=== PATIENT | female | born 1990 | race African-American/Black ===

== ENCOUNTER 2017-02-23 08:23 | Emergency (ER) | payer SELFPAY ==
[~2017-02-23] VITALS: Ht 177.8 cm; Wt 59.0 kg
--- NOTE | 2017-02-23 08:54 | PHYS DOC ---
Adult General Chief Complaint Chief Complaint: CHEST WALL PAIN HPI HPI Patient is a 26 year old female with a history of GERD presents to the ED complaining of chest discomfort that started yesterday during christian. Describes the pain as sharp. Rates the pain as 8/10 at its worst. Substernal. No radiation. States she stopped taking her GERD medications a few months ago and didnt have a problem until yesterday. Associated symptoms include burping. Denies shortness of breath, dizziness, weakness, n/v, abdominal pain, fever or cough/flu like symptoms. Review of Systems Review of Systems Constitutional: Denies fever or chills [] Eyes: Denies change in visual acuity, redness, or eye pain [] HENT: Denies nasal congestion or sore throat [] Respiratory: Denies cough or shortness of breath [] Cardiovascular: No additional information not addressed in HPI [] GI: Denies abdominal pain, nausea, vomiting, bloody stools or diarrhea [] : Denies dysuria or hematuria [] Musculoskeletal: Denies back pain or joint pain [] Integument: Denies rash or skin lesions [] Neurologic: Denies headache, focal weakness or sensory changes [] Endocrine: Denies polyuria or polydipsia [] All other systems were reviewed and found to be within normal limits, except as documented in this note. Current Medications Current Medications Current Medications Medications (Trade) Dose Ordered Sig/Trini Start Time Stop Time Status Last Admin Dose Admin Famotidine (Pepcid Vial) 20 mg 1X ONCE 02/23/17 09:00 02/23/17 09:02 DC 02/23/17 09:28 20 MG Allergies Allergies Allergies Coded Allergies Type Severity Reaction Last Updated Verified No Known Drug Allergies 02/23/17 No Physical Exam Physical Exam Constitutional: Well developed, well nourished, no acute distress, non-toxic appearance. [] HENT: Normocephalic, atraumatic, bilateral external ears normal, oropharynx moist, no oral exudates, nose normal. [] Eyes: PERRLA, EOMI, conjunctiva normal, no discharge. [] Neck: Normal range of motion, no tenderness, supple, no stridor. [] Cardiovascular:Heart rate regular rhythm, no murmur [] Lungs & Thorax: Bilateral breath sounds clear to auscultation [] Abdomen: Bowel sounds normal, soft, no tenderness, no masses, no pulsatile masses. [] Skin: Warm, dry, no erythema, no rash. [] Back: No tenderness, no CVA tenderness. [] Extremities: No tenderness, no cyanosis, no clubbing, ROM intact, no edema. [] Neurologic: Alert and oriented X 3, normal motor function, normal sensory function, no focal deficits noted. [] Psychologic: Affect normal, judgement normal, mood normal. [] Current Patient Data Vital Signs Vital Signs Date Time Temp Pulse Resp B/P (MAP) Pulse Ox O2 Delivery O2 Flow Rate FiO2 02/23/17 09:37 92 19 132/78 (96) 100 Room Air 02/23/17 09:01 98.1 98.1 Lab Values Laboratory Tests Test 02/23/17 09:00 02/23/17 09:19 02/23/17 09:20 Urine Collection Type Unknown Urine Color Yellow Urine Clarity Clear Urine pH 7.5 Urine Specific [place] 1.015 Urine Protein Negative mg/dL (NEG-TRACE) Urine Glucose (UA) Negative mg/dL (NEG) Urine Ketones (Stick) Negative mg/dL (NEG) Urine Blood Negative (NEG) Urine Nitrite Negative (NEG) Urine Bilirubin Negative (NEG) Urine Urobilinogen Dipstick 0.2 mg/dL (0.2 mg/dL) Urine Leukocyte Esterase Negative (NEG) Urine RBC 0 /HPF (0-2) Urine WBC Occ /HPF (0-4) Urine Squamous Epithelial Cells Mod /LPF Urine Bacteria Few /HPF (0-FEW) Urine Yeast Present /HPF POC Urine HCG, Qualitative Hcg negative (Negative) White Blood Count 4.5 x10^3/uL (4.0-11.0) Red Blood Count 4.49 x10^6/uL (3.50-5.40) Hemoglobin 13.1 g/dL (12.0-15.5) Hematocrit 40.4 % (36.0-47.0) Mean Corpuscular Volume 90 fL (79-100) Mean Corpuscular Hemoglobin 29 pg (25-35) Mean Corpuscular Hemoglobin Concent 32 g/dL (31-37) Red Cell Distribution Width 13.8 % (11.5-14.5) Platelet Count 168 x10^3/uL (140-400) Sodium Level 139 mmol/L (136-145) Potassium Level 3.8 mmol/L (3.5-5.1) Chloride Level 105 mmol/L (98-107) Carbon Dioxide Level 25 mmol/L (21-32) Anion Gap 9 (6-14) Blood Urea Nitrogen 11 mg/dL (7-20) Creatinine 0.7 mg/dL (0.6-1.0) Estimated GFR (Cockcroft-Gault) 122.4 BUN/Creatinine Ratio 16 (6-20) Glucose Level 84 mg/dL (70-99) Calcium Level 9.6 mg/dL (8.5-10.1) Total Bilirubin 0.8 mg/dL (0.2-1.0) Aspartate Amino Transferase (AST) 22 U/L (15-37) Alanine Aminotransferase (ALT) 22 U/L (14-59) Alkaline Phosphatase 77 U/L (46-116) Troponin I Quantitative < 0.017 ng/mL (0.000-0.055) Total Protein 8.1 g/dL (6.4-8.2) Albumin 3.8 g/dL (3.4-5.0) Albumin/Globulin Ratio 0.9 (1.0-1.7) L Laboratory Tests 02/23/17 09:20 Laboratory Tests 02/23/17 09:20 EKG EKG []Normal sinus rhythm at 78 bpm. No STEMI or ACUTE changes. Radiology/Procedures Radiology/Procedures PROCEDURE: CHEST PA & LATERAL Indication: Chest pain for one week. Time of exam 0956 hours. No prior studies are available for comparison. The heart size is normal. The lungs are clear. No infiltrates are detected. No effusion or pneumothorax is seen. Impression: No acute cardiopulmonary process is detected.[] Course & Med Decision Making Course & Med Decision Making Pertinent Labs and Imaging studies reviewed. (See chart for details) []Discussed labs and imaging with patient. Patient's discomfort resolved with medicine in ED. Abdomen is soft nontender nondistended. No peritoneal signs. Discussed follow-up with PCP outpatient later this week. Will discharge with prednisone. Discussed reasons to return to the ED. Patient understands and agrees with plan. Dragon Disclaimer Dragon Disclaimer This electronic medical record was generated, in whole or in part, using a voice recognition dictation system. Departure Departure Impression: Primary Impression: GERD (gastroesophageal reflux disease) Disposition: HOME, SELF-CARE Condition: IMPROVED Referrals: NO PCP (PCP) CHULA GOLDSTEIN MD, SCOTT S MD Patient Instructions: Gastroesophageal Reflux Disease, Adult Scripts Omeprazole Magnesium (PRILOSEC OTC) 20 Mg Tablet.dr 1 TAB PO DAILY, #30 TAB 3 Refills Prov: VERA MARMOLEJO 02/23/17 VERA MARMOLEJO Feb 23, 2017 08:54
[2017-02-23] MEDS ORDERED: FAMOTIDINE 20 MG/2 ML VIAL IVP ONE (09:00)
--- NOTE | 2017-02-23 09:03 | EKG ---
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
[2017-02-23 09:37] VITALS: BP 132/78
[2017-02-23 09:37] LABS: BILIRUBIN,URINE NEGATIVE (NEG); GLUCOSE,URINE NEGATIVE (NEG); NITRITE,URINE NEGATIVE (NEG); PH,URINE 7.5; PROTEIN,URINE NEGATIVE (NEG-TRACE); UROBILINOGEN,URINE 0.2 mg/dL (0.2 mg/dL)
[2017-02-23 09:40] LABS: HEMATOCRIT 40.4 % (36.0-47.0); HEMOGLOBIN 13.1 g/dL (12.0-15.5); RED BLOOD COUNT 4.49 x10^6/uL (3.50-5.40); RED CELL DISTRIBUTION WIDTH 13.8 % (11.5-14.5); WHITE BLOOD COUNT 4.5 x10^3/uL (4.0-11.0)
[2017-02-23 09:45] LABS: SQUAMOUS EPITHELIAL CELL,UR MOD /LPF
[2017-02-23 09:46] LABS: BACTERIA,URINE FEW /HPF (0-FEW); RBC,URINE 0 /HPF (0-2); WBC,URINE OCC /HPF (0-4); YEAST,URINE PRESENT /HPF
[2017-02-23 09:48] LABS: CALCIUM 9.6 mg/dL (8.5-10.1); CREATININE 0.7 mg/dL (0.6-1.0); GFR 122.4; POTASSIUM 3.8 mmol/L (3.5-5.1)
[2017-02-23 09:54] LABS: ALBUMIN 3.8 g/dL (3.4-5.0); ALBUMIN/GLOBULIN RATIO 0.9 (1.0-1.7); TOTAL BILIRUBIN 0.8 mg/dL (0.2-1.0); TOTAL PROTEIN 8.1 g/dL (6.4-8.2)
--- NOTE | 2017-02-23 10:07 | RAD ---
Indication: Chest pain for one week. Time of exam 0956 hours. No prior studies are available for comparison. The heart size is normal. The lungs are clear. No infiltrates are detected. No effusion or pneumothorax is seen. Impression: No acute cardiopulmonary process is detected.
[2017-02-23] MEDS ORDERED: OMEP20TA63 PO (10:15)
== END 2017-02-23 10:28 | disposition home or self-care (01) ==
LOC: ER 08:23
DX: K21.9 Gastro-esophageal reflux disease without esophagitis (principal); R07.2 Precordial pain
CPT/HCPCS: 36415; 71020; 80053; 81001; 81025; 84484; 85027; 93005; 96374; 99285; S0028

== ENCOUNTER 2017-12-20 10:14 | Emergency (ER) | payer SELFPAY ==
[~2017-12-20] VITALS: Ht 177.8 cm; Wt 59.0 kg
[~2017-12-20 10:14] MED LIST: OMEP20TA63 PO
[2017-12-20 10:26] VITALS: BP 131/81
[2017-12-20] MEDS ORDERED: KETOROLAC 60 MG/2 ML INJ. IM ONE (11:15)
[2017-12-20] MEDS ORDERED: CYCLOBENZAPRINE 10 MG TABLET. PO ONE (11:15)
[2017-12-20] MEDS ORDERED: HYDROcodone/APAP 5/325MG 1 TAB TABLET PO ONE (11:15)
[2017-12-20] MEDS ORDERED: NAPR-683 PO (11:42)
[2017-12-20] MEDS ORDERED: CYCL10TA2 PO (11:42)
[2017-12-20] MEDS ORDERED: METH4TAB2 PO (11:42)
[2017-12-20] MEDS ORDERED: TRAM-48 PO (11:42)
--- NOTE | 2017-12-20 11:43 | PHYS DOC ---
Past Medical History Past Medical History: GERD, Other Additional Past Medical Histor: SCOLIOSIS, SCIATICA Past Surgical History: No Surgical History Alcohol Use: None Drug Use: None Adult General Chief Complaint Chief Complaint: BACK PAIN - NO INJURY [facility] HPI Patient is a 27 year old female who presents with complaining of low back pain since yesterday. Patient states she woke up yesterday with left lower back pain with radiation to the left gluteal area and posterior thigh as a constant and stabbing pain that getting worse with movement. Patient denies injury, focal neuro deficit, urine and bowel incontinence, urinary symptoms, , abdominal pain, nausea and vomiting. Patient rated her pain 10 over 10 and states she had episodes of the same pain intermittently for the last 6 years. Review of Systems Review of Systems Constitutional: Denies fever or chills [] Eyes: Denies change in visual acuity, redness, or eye pain [] HENT: Denies nasal congestion or sore throat [] Respiratory: Denies cough or shortness of breath [] Cardiovascular: No additional information not addressed in HPI [] GI: Denies abdominal pain, nausea, vomiting, bloody stools or diarrhea [] : Denies dysuria or hematuria [] Musculoskeletal: Reports back pain Integument: Denies rash or skin lesions [] Neurologic: Denies headache, focal weakness or sensory changes [] Endocrine: Denies polyuria or polydipsia [] All other systems were reviewed and found to be within normal limits, except as documented in this note. Current Medications Current Medications Current Medications Medications (Trade) Dose Ordered Sig/[facility] Start Time Stop Time Status Last Admin Dose Admin Acetaminophen/ Hydrocodone Bitart (Lortab 5/325) 1 tab 1X ONCE 12/20/17 11:15 12/20/17 11:16 DC 12/20/17 11:18 1 TAB Cyclobenzaprine HCl (Flexeril) 10 mg 1X ONCE 12/20/17 11:15 12/20/17 11:16 DC 12/20/17 11:18 10 MG Ketorolac Tromethamine (Toradol Im) 60 mg 1X ONCE 12/20/17 11:15 12/20/17 11:16 DC 12/20/17 11:20 60 MG Allergies Allergies Allergies Coded Allergies Type Severity Reaction Last Updated Verified No Known Drug Allergies 02/23/17 No Physical Exam Physical Exam Constitutional: Well developed, well nourished, moderate distress, non-toxic appearance. [] HENT: Normocephalic, atraumatic Eyes: PERRLA, EOMI, conjunctiva normal, no discharge. [] Neck: Normal range of motion, no tenderness, supple, no stridor. [] Cardiovascular:Heart rate regular rhythm, no murmur [] Lungs & Thorax: Bilateral breath sounds clear to auscultation [] Abdomen: Bowel sounds normal, soft, no tenderness, no masses, no pulsatile masses. [] Skin: Warm, dry, no erythema, no rash. [] Back: No midline tenderness, left paraspinal muscle spasm and limited range of motion, no CVA tenderness. [] Extremities: No tenderness, no cyanosis, no clubbing, ROM intact, no edema. [] Neurologic: Alert and oriented X 3, normal motor function, normal sensory function, no focal deficits noted. [] Psychologic: Affect normal, judgement normal, mood normal. [] Current Patient Data Vital Signs Vital Signs Date Time Temp Pulse Resp B/P (MAP) Pulse Ox O2 Delivery O2 Flow Rate FiO2 12/20/17 11:18 13 12/20/17 10:26 98.8 103 131/81 (98) 95 Room Air 98.8 EKG EKG [] Radiology/Procedures Radiology/Procedures [] Course & Med Decision Making Course & Med Decision Making discharge: I've spoken with the patient and/or caregivers. I've explained the patient's condition, diagnosis and treatment plan based on information available to me at this time. I've answered the patient's and/or caregivers questions and addressed any concerns. The patient and/or caregivers have a good understanding the patient's diagnosis, condition and treatment plan as can be expected at this point. Vital signs have been stabilized. The patient's condition is stable for discharge from the emergency department. The patient will pursue further outpatient evaluation with her primary care provider or other designated consulting physician as outlined in the discharge instructions. Patient and/or caregivers are agreeable to this plan of care and follow-up instructions have been explained in detail. The patient and/or caregivers have received these instructions in written format and expressed understanding of these discharge instructions. The patient and her caregivers are aware that if any significant change in condition or worsening of symptoms should prompt him to immediately return to this of the closest emergency department. If an emergent department is not readily available I would encourage him to call 911. Jadyn Disclaimer Jadyn Disclaimer This electronic medical record was generated, in whole or in part, using a voice recognition dictation system. Departure Departure Impression: Primary Impression: Sciatica Disposition: 01 HOME, SELF-CARE (at 11:30) Condition: IMPROVED Referrals: NO PCP (PCP) Patient Instructions: Sciatica Additional Instructions: Drink plenty of liquids Follow-up with your primary care physician in 3-5 days Return to ER if not getting better Apply ice on your back Scripts Naproxen (NAPROSYN) 500 Mg Tablet 1 TAB PO BID, #20 TAB Prov: GARCIA DUKES MD 12/20/17 Tramadol Hcl (ULTRAM) 50 Mg Tablet 50 MG PO Q6HRS PRN for PAIN, #20 TAB 0 Refills Prov: GARCIA DUKES MD 12/20/17 Cyclobenzaprine Hcl (CYCLOBENZAPRINE HCL) 10 Mg Tablet 1 TAB PO TID, #30 TAB Prov: GARCIA DUKES MD 12/20/17 Methylprednisolone (MEDROL) 4 Mg Tab.ds.pk 1 PKG PO UD, #1 PKG Prov: GARCIA DUKES MD 12/20/17 GARCIA DUKES MD Dec 20, 2017 11:43
== END 2017-12-20 11:52 | disposition home or self-care (01) ==
LOC: ER 10:14
DX: M54.42 Lumbago with sciatica, left side (principal); K21.9 Gastro-esophageal reflux disease without esophagitis
CPT/HCPCS: 96372; 99283; J1885

== ENCOUNTER 2018-06-12 15:40 | Emergency (ER) | payer SELFPAY ==
[~2018-06-12] VITALS: Ht 160 cm; Wt 56.7 kg
[~2018-06-12 15:40] MED LIST changes: +CYCL10TA2 PO; +METH4TAB2 PO; +NAPR-683 PO; +TRAM-48 PO
[2018-06-12] MEDS ORDERED: IV NORMAL SALINE 1000ML BAG 1,000 ML IV SCH (15:58)
[2018-06-12] MEDS ORDERED: FAMOTIDINE 20 MG/2 ML VIAL IVP ONE (16:00)
[2018-06-12 16:28] LABS: BILIRUBIN,URINE NEGATIVE (NEG); CLARITY,URINE CLEAR; COLOR,URINE YELLOW; NITRITE,URINE NEGATIVE (NEG); PH,URINE 7.5; PROTEIN,URINE NEGATIVE (NEG-TRACE)
[2018-06-12 16:34] LABS: AMPHETAMINE/METHAMPHETAMINE NEG (NEG); BARBITURATES NEG (NEG); BENZODIAZEPINES NEG (NEG); CANNABINOIDS NEG (NEG); COCAINE NEG (NEG); METHADONE NEG (NEG); OPIATES NEG (NEG); PHENCYCLIDINE NEG (NEG)
[2018-06-12 16:34] LABS: BASO % 0 % (0-3); EOS # 0.1 x10^3/uL (0.0-0.7); EOS % 2 % (0-3); HEMATOCRIT 41.9 % (36.0-47.0); HEMOGLOBIN 13.6 g/dL (12.0-15.5); LYMPH # 2.3 x10^3/uL (1.0-4.8); LYMPH % 29 % (24-48); MEAN CORPUSCULAR HEMOGLOBIN 29 pg (25-35); MEAN CORPUSCULAR HGB CONC 32 g/dL (31-37); MEAN CORPUSCULAR VOLUME 90 fL (79-100); MONO # 0.5 x10^3/uL (0.0-1.1); MONO % 7 % (0-9); NEUT # 4.9 x10^3uL (1.8-7.7); NEUT % 62 % (31-73); PLATELET COUNT 192 x10^3/uL (140-400); RED BLOOD COUNT 4.66 x10^6/uL (3.50-5.40); RED CELL DISTRIBUTION WIDTH 14.2 % (11.5-14.5); WHITE BLOOD COUNT 7.9 x10^3/uL (4.0-11.0)
--- NOTE | 2018-06-12 16:34 | PHYS DOC ---
Past Medical History Past Medical History: GERD, Other Additional Past Medical Histor: SCOLIOSIS, SCIATICA Past Surgical History: No Surgical History Alcohol Use: None Drug Use: None Adult General Chief Complaint Chief Complaint: CHEST PAIN HPI HPI Patient is a 27 year old female who presents with 3 days of mid chest pain that is sharp and comes and goes and tends to come when she is laying flat at night and does get better when she sits up. Patient has a history of GERD. Patient states she begins having some trouble breathing when she lays down. Patient states she has some nausea that comes and goes but she has not been vomiting. Patient denies coughing or recent illness, fever, abdominal pain, diarrhea, headache, dizziness, visual changes, weakness or numbness and tingling. Review of Systems Review of Systems Constitutional: Denies fever or chills [] Eyes: Denies change in visual acuity, redness, or eye pain [] HENT: Denies nasal congestion or sore throat [] Respiratory: Denies cough. +shortness of breath [] Cardiovascular: mid chest pain GI: Denies abdominal pain, + nausea, denies vomiting, bloody stools or diarrhea [] : Denies dysuria or hematuria [] Musculoskeletal: Denies back pain or joint pain [] Integument: Denies rash or skin lesions [] Neurologic: Denies headache, focal weakness or sensory changes [] All other systems were reviewed and found to be within normal limits, except as documented in this note. Current Medications Current Medications Current Medications Medications (Trade) Dose Ordered Sig/Trini Start Time Stop Time Status Last Admin Dose Admin Famotidine (Pepcid Vial) 20 mg 1X ONCE 06/12/18 16:00 06/12/18 16:02 DC 06/12/18 16:19 20 MG Sodium Chloride 1,000 ml @ 1,000 mls/hr Q1H 06/12/18 15:58 06/12/18 16:57 DC 06/12/18 16:20 1,000 MLS/HR Allergies Allergies Allergies Coded Allergies Type Severity Reaction Last Updated Verified No Known Drug Allergies 02/23/17 No Physical Exam Physical Exam Constitutional: Well developed, well nourished, no acute distress, non-toxic appearance. [] HENT: Normocephalic, atraumatic, bilateral external ears normal, oropharynx moist, no oral exudates, nose normal. [] Eyes: PERRLA, EOMI, conjunctiva normal, no discharge. [] Neck: Normal range of motion, no tenderness, supple, no stridor. [] Cardiovascular:Heart rate regular rhythm, no murmur [] Lungs & Thorax: Bilateral breath sounds clear to auscultation [] Abdomen: Bowel sounds normal, soft, no tenderness, no masses, no pulsatile masses. [] Skin: Warm, dry, no erythema, no rash. [] Back: No tenderness, no CVA tenderness. [] Extremities: No tenderness, no cyanosis, no clubbing, ROM intact, no edema. [] Neurologic: Alert and oriented X 3, normal motor function, normal sensory function, no focal deficits noted. [] Psychologic: Affect normal, judgement normal, mood normal. [] Normal Physical Exam Current Patient Data Vital Signs Vital Signs Date Time Temp Pulse Resp B/P (MAP) Pulse Ox O2 Delivery O2 Flow Rate FiO2 06/12/18 17:11 90 143/92 (109) 100 Room Air 06/12/18 15:56 98.3 18 98.3 Lab Values Laboratory Tests Test 06/12/18 16:05 06/12/18 16:18 06/12/18 16:25 Urine Collection Type Unknown Urine Color Yellow Urine Clarity Clear Urine pH 7.5 Urine Specific [place] 1.015 Urine Protein Negative mg/dL (NEG-TRACE) Urine Glucose (UA) Negative mg/dL (NEG) Urine Ketones (Stick) Negative mg/dL (NEG) Urine Blood Negative (NEG) Urine Nitrite Negative (NEG) Urine Bilirubin Negative (NEG) Urine Urobilinogen Dipstick 1.0 mg/dL (0.2 mg/dL) Urine Leukocyte Esterase Negative (NEG) Urine RBC Occ /HPF (0-2) Urine WBC Rare /HPF (0-4) Urine Squamous Epithelial Cells Few /LPF Urine Bacteria Few /HPF (0-FEW) Urine Mucus Slight /LPF Urine Opiates Screen Neg (NEG) Urine Methadone Screen Neg (NEG) Urine Barbiturates Neg (NEG) Urine Phencyclidine Screen Neg (NEG) Urine Amphetamine/Methamphetamine Neg (NEG) Urine Benzodiazepines Screen Neg (NEG) Urine Cocaine Screen Neg (NEG) Urine Cannabinoids Screen Neg (NEG) Urine Ethyl Alcohol Neg (NEG) POC Urine HCG, Qualitative Hcg negative (Negative) White Blood Count 7.9 x10^3/uL (4.0-11.0) Red Blood Count 4.66 x10^6/uL (3.50-5.40) Hemoglobin 13.6 g/dL (12.0-15.5) Hematocrit 41.9 % (36.0-47.0) Mean Corpuscular Volume 90 fL (79-100) Mean Corpuscular Hemoglobin 29 pg (25-35) Mean Corpuscular Hemoglobin Concent 32 g/dL (31-37) Red Cell Distribution Width 14.2 % (11.5-14.5) Platelet Count 192 x10^3/uL (140-400) Neutrophils (%) (Auto) 62 % (31-73) Lymphocytes (%) (Auto) 29 % (24-48) Monocytes (%) (Auto) 7 % (0-9) Eosinophils (%) (Auto) 2 % (0-3) Basophils (%) (Auto) 0 % (0-3) Neutrophils # (Auto) 4.9 x10^3uL (1.8-7.7) Lymphocytes # (Auto) 2.3 x10^3/uL (1.0-4.8) Monocytes # (Auto) 0.5 x10^3/uL (0.0-1.1) Eosinophils # (Auto) 0.1 x10^3/uL (0.0-0.7) Basophils # (Auto) 0.0 x10^3/uL (0.0-0.2) Sodium Level 141 mmol/L (136-145) Potassium Level 3.7 mmol/L (3.5-5.1) Chloride Level 104 mmol/L (98-107) Carbon Dioxide Level 25 mmol/L (21-32) Anion Gap 12 (6-14) Blood Urea Nitrogen 13 mg/dL (7-20) Creatinine 0.7 mg/dL (0.6-1.0) Estimated GFR (Cockcroft-Gault) 121.5 BUN/Creatinine Ratio 19 (6-20) Glucose Level 77 mg/dL (70-99) Calcium Level 9.2 mg/dL (8.5-10.1) Total Bilirubin 0.3 mg/dL (0.2-1.0) Aspartate Amino Transferase (AST) 30 U/L (15-37) Alanine Aminotransferase (ALT) 40 U/L (14-59) Alkaline Phosphatase 105 U/L (46-116) Troponin I Quantitative < 0.017 ng/mL (0.000-0.055) Total Protein 8.8 g/dL (6.4-8.2) H Albumin 4.3 g/dL (3.4-5.0) Albumin/Globulin Ratio 1.0 (1.0-1.7) Lipase 120 U/L (73-393) Laboratory Tests 06/12/18 16:25 Laboratory Tests 06/12/18 16:25 EKG EKG Sinus rhythm and no STEMI Interpretation Time: [address] Thurman Radiology/Procedures Radiology/Procedures [] Course & Med Decision Making Course & Med Decision Making Patient is a 27 year old female who presents with 3 days of mid chest pain that is sharp and comes and goes and tends to come when she is laying flat at night and does get better when she sits up. Patient has a history of GERD. Patient states she begins having some trouble breathing when she lays down. Patient states she has some nausea that comes and goes but she has not been vomiting. Patient denies coughing or recent illness, fever, abdominal pain, diarrhea, headache, dizziness, visual changes, weakness or numbness and tingling. Alert and oriented. Skin pink warm and dry. Mucous membranes are moist. Speaks in full clear sentences. Abdomen is soft and nontender. Patient states she did not eat her period this month and she is also concerned about that. Patient denies dysuria symptoms. Patient states she's not on any type of control at this time. Chest pain cannot be reproduce with palpation. Lungs are clear to auscultation in all lobes. Heart rate regular without murmur. EKG shows sinus rhythm and no STEMI. Patient states she does not smoke and has no past medical history except for GERD. She has lower extremity or peripheral edema. Vital signs are within normal limits. Chest xray shows no acute findings and read by Dr. Thurman. Patient states she is feeling better. Patient discharged with probable GERD. Patient to follow up with primary care physician. Jadyn Disclaimer Jadyn Disclaimer This electronic medical record was generated, in whole or in part, using a voice recognition dictation system. Departure Departure Impression: Primary Impression: GERD (gastroesophageal reflux disease) Disposition: 01 HOME, SELF-CARE Condition: STABLE Referrals: NO PCP (PCP) Patient Instructions: Diet for Gastroesophageal Reflux Disease, Adult, Gastroesophageal Reflux Disease, Adult Additional Instructions: Follow-up her primary care provider. Take medication as prescribed. Try not to eat or lay down after eating for 2 hours. Stay away from spicy or fried foods. Scripts Famotidine (PEPCID) 20 Mg Tablet 20 MG PO BID for 10 Days, #20 TAB Prov: SUNIL KAUFMAN APRN 06/12/18 Problem Qualifiers Primary Impression: GERD (gastroesophageal reflux disease) Esophagitis presence: esophagitis presence not specified Qualified Codes: K21.9 - Gastro-esophageal reflux disease without esophagitis SUNIL KAUFMAN APRN Jun 12, 2018 16:34
[2018-06-12 16:35] LABS: BACTERIA,URINE FEW /HPF (0-FEW); RBC,URINE OCC /HPF (0-2); SQUAMOUS EPITHELIAL CELL,UR FEW /LPF; WBC,URINE RARE /HPF (0-4)
[2018-06-12 16:49] LABS: CALCIUM 9.2 mg/dL (8.5-10.1); CREATININE 0.7 mg/dL (0.6-1.0); GFR 121.5; POTASSIUM 3.7 mmol/L (3.5-5.1)
[2018-06-12 16:54] LABS: ALBUMIN 4.3 g/dL (3.4-5.0); TOTAL BILIRUBIN 0.3 mg/dL (0.2-1.0); TOTAL PROTEIN 8.8 g/dL (6.4-8.2)
[2018-06-12 17:11] VITALS: BP 143/92
[2018-06-12] MEDS ORDERED: FAMO-63 PO (17:54)
--- NOTE | 2018-06-12 18:05 | RAD ---
EXAM: CHEST 2 VIEWS. HISTORY: Chest pain. COMPARISON: 02/23/2017. FINDINGS: Frontal and lateral views of the chest are obtained. There are no confluent infiltrates. There is no pneumothorax or pleural effusion. The heart is not enlarged. IMPRESSION: 1. No confluent infiltrates. Electronically signed by: Nader Morfin MD (06/12/2018 6:02 PM) [facility] [place]
--- NOTE | 2018-06-13 08:42 | EKG ---
[facility] [address] [place] [address] Test Date: 2018-06-12 Test Time: 15:48:22 Pat Name: ROXY DA SILVA Department: Room: Gender: F [employer] Manager: : 1990 Requested By: SUNIL KAUFMAN Order Number: [id number] Reading MD: Anders Becker MD Measurements Intervals [place] Rate: 87 P: 52 [place]: 164 QRS: 59 QRSD: 78 T: 45 QT: 332 QTc: 400 Interpretive Statements SINUS RHYTHM Electronically Signed On 06-22-2018 22:05:48 CDT by Anders Becker MD
== END 2018-06-12 18:10 | disposition home or self-care (01) ==
LOC: ER 15:40
DX: K21.9 Gastro-esophageal reflux disease without esophagitis (principal); R07.89 Other chest pain
CPT/HCPCS: 36415; 71046; 80053; 80307; 81001; 81025; 83690; 84484; 85025; 93005; 96374; 99284; J3490; J7030

== ENCOUNTER 2018-11-16 13:42 | Emergency (ER) | payer SELFPAY ==
[~2018-11-16] VITALS: Ht 177.8 cm; Wt 59.0 kg
[~2018-11-16 13:42] MED LIST changes: +FAMO-63 PO
[2018-11-16 14:00] VITALS: BP 119/64
--- NOTE | 2018-11-16 14:32 | PHYS DOC ---
Past Medical History Past Medical History: GERD, Other Additional Past Medical Histor: SCOLIOSIS, SCIATICA Past Surgical History: No Surgical History Alcohol Use: None Drug Use: None Adult General Chief Complaint Chief Complaint: VAGINAL BLEEDING HPI HPI Patient is a 28 year old female presents to the ED complaining of vaginal spotting �2 hours. Patient states that she had some small spotting today. States she thinks she took a positive test 3 weeks ago. Patient states she's had no symptoms since then. Patient states her last menstrual period was a month ago. Patient unsure if this is the start of another cycle or if she is . Denies fever, abdominal pain, vaginal discharge, dysuria, hematuria, flank pain, chest pain, shortness of breath or dizziness. Review of Systems Review of Systems Constitutional: Denies fever or chills [] Eyes: Denies change in visual acuity, redness, or eye pain [] HENT: Denies nasal congestion or sore throat [] Respiratory: Denies cough or shortness of breath [] Cardiovascular: No additional information not addressed in HPI [] GI: Denies abdominal pain, nausea, vomiting, bloody stools or diarrhea [] : Denies dysuria or hematuria [] Musculoskeletal: Denies back pain or joint pain [] Integument: Denies rash or skin lesions [] Neurologic: Denies headache, focal weakness or sensory changes [] All other systems were reviewed and found to be within normal limits, except as documented in this note. Allergies Allergies Allergies Coded Allergies Type Severity Reaction Last Updated Verified No Known Drug Allergies 02/23/17 No Physical Exam Physical Exam Constitutional: Well developed, well nourished, no acute distress, non-toxic appearance. [] HENT: Normocephalic, atraumatic Neck: Normal range of motion, no tenderness, supple, no stridor. [] Cardiovascular:Heart rate regular rhythm, no murmur [] Lungs & Thorax: Bilateral breath sounds clear to auscultation [] Abdomen: Bowel sounds normal, soft, no tenderness, no masses, no pulsatile masses. [] Skin: Warm, dry, no erythema, no rash. [] Back: No tenderness, no CVA tenderness. [] Extremities: No tenderness, no cyanosis, no clubbing, ROM intact, no edema. [] Neurologic: Alert and oriented X 3, normal motor function, normal sensory function, no focal deficits noted. [] Psychologic: Affect normal, judgement normal, mood normal. [] Current Patient Data Vital Signs Vital Signs Date Time Temp Pulse Resp B/P (MAP) Pulse Ox O2 Delivery O2 Flow Rate FiO2 11/16/18 14:00 98.3 88 18 119/64 (82) 98 Room Air 98.3 Lab Values Laboratory Tests Test 11/16/18 14:18 POC Urine HCG, Qualitative Hcg negative (Negative) EKG EKG [] Radiology/Procedures Radiology/Procedures [] Course & Med Decision Making Course & Med Decision Making Pertinent Labs and Imaging studies reviewed. (See chart for details) []Patient had a negative test in the ED. Patient has no other symptoms warranting a further emergent workup. Discussed follow-up with [facility] for further evaluation and management this week. Provided contact information/education. Discussed reasons to return to the ED. Patient understands and agrees with plan. Dragon Disclaimer Dragon Disclaimer This electronic medical record was generated, in whole or in part, using a voice recognition dictation system. Departure Departure Impression: Primary Impression: Dysfunctional uterine bleeding Disposition: HOME, SELF-CARE Condition: STABLE Referrals: NO PCP (PCP) VA VICTORIA Jr, MD Patient Instructions: Uterine Bleeding, Dysfunctional VERA MARMOLEJO Nov 16, 2018 14:32
== END 2018-11-16 14:50 | disposition home or self-care (01) ==
LOC: ER 13:42
DX: N93.8 Other specified abnormal uterine and vaginal bleeding (principal); K21.9 Gastro-esophageal reflux disease without esophagitis
CPT/HCPCS: 81025; 99282

== ENCOUNTER 2019-01-10 17:13 | Emergency (ER) | payer SELFPAY ==
[~2019-01-10] VITALS: Ht 172.7 cm; Wt 59.0 kg
[2019-01-10 17:39] VITALS: BP 124/81
--- NOTE | 2019-01-10 18:27 | PHYS DOC ---
Past Medical History Past Medical History: GERD, Other Additional Past Medical Histor: SCOLIOSIS, SCIATICA Past Surgical History: No Surgical History Alcohol Use: None Drug Use: None Adult General Chief Complaint Chief Complaint: GENERAL COMPLAINT HPI HPI Patient is a 28 year old female with a history of acid reflex presents to the ED today with multiple complaints. Patient states since Thursday she is felt tired, she states she feels sick, her description of sick is feeling tired, she states her blood pressure was checked on Thursday as well as today at work and it was noted to be high, she doesn't have the specific numbers. She's had mild headaches diffusely intermittently since Thursday. 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 Patient denies any neck pain. Denies any cough or congestion. Denies any chance she is , she states she just completed her menstrual cycle on Thursday last week. Review of Systems Review of Systems Constitutional: Denies fever or chills [] Eyes: Denies change in visual acuity, redness, or eye pain [] HENT: Denies nasal congestion or sore throat [] Respiratory: Denies cough or shortness of breath [] Cardiovascular: No additional information not addressed in HPI [] GI: Denies abdominal pain, nausea, vomiting, bloody stools or diarrhea [] : Denies dysuria or hematuria [] Musculoskeletal: Denies back pain or joint pain [] Integument: Denies rash or skin lesions [] Neurologic: Reports headache, denies focal weakness or sensory changes [] All other systems were reviewed and found to be within normal limits, except as documented in this note. Allergies Allergies Allergies Coded Allergies Type Severity Reaction Last Updated Verified No Known Drug Allergies 02/23/17 No Physical Exam Physical Exam Constitutional: Well developed, well nourished, no acute distress, non-toxic appearance. [] HENT: Normocephalic, atraumatic, bilateral external ears normal, oropharynx moist, no oral exudates, nose normal. [] Eyes: PERRLA, EOMI, conjunctiva normal, no discharge. [] Neck: Normal range of motion, no tenderness, supple, no stridor. [] Cardiovascular:Heart rate regular rhythm, no murmur [] Lungs & Thorax: Bilateral breath sounds clear to auscultation [] Abdomen: Bowel sounds normal, soft, no tenderness, no masses, no pulsatile masses. [] Skin: Warm, dry, no erythema, no rash. [] Back: No tenderness, no CVA tenderness. [] Extremities: No tenderness, no cyanosis, no clubbing, ROM intact, no edema. [] Neurologic: Alert and oriented X 3, normal motor function, normal sensory function, no focal deficits noted. Cranial nerves II-XII intact. Psychologic: Affect normal, judgement normal, mood normal. [] Current Patient Data Vital Signs Vital Signs Date Time Temp Pulse Resp B/P (MAP) Pulse Ox O2 Delivery O2 Flow Rate FiO2 01/10/19 17:39 97.8 83 16 124/81 (95) 99 Room Air 97.8 EKG EKG [] Radiology/Procedures Radiology/Procedures [] Course & Med Decision Making Course & Med Decision Making Pertinent Labs and Imaging studies reviewed. (See chart for details) This is a 28-year-old female patient presented to the ED today complaining of not feeling well, described as headache and fatigue for 3 days. Patient was also complaining of high blood pressures that were measured on Thursday as well as today. On arrival to the ED patient's blood pressure is 124/81 with a heart rate of 83. Patient's physical exam is benign. She eloped from the Ed. Dragon Disclaimer Dragon Disclaimer This electronic medical record was generated, in whole or in part, using a voice recognition dictation system. Departure Departure Impression: Primary Impression: Headache Additional Impression: Fatigue Disposition: 07 AGAINST MEDICAL ADVICE Condition: STABLE Referrals: NO PCP (PCP) Problem Qualifiers Primary Impression: Headache Headache type: unspecified Headache chronicity pattern: unspecified pattern Intractability: not intractable Qualified Codes: R51 - Headache Additional Impression: Fatigue Fatigue type: unspecified Qualified Codes: R53.83 - Other fatigue TRAVON THOMPSON [employer] Jan 10, 2019 18:26
== END 2019-01-10 18:36 | disposition left against medical advice (07) ==
LOC: ER 17:13
DX: R51 Headache (principal); R53.83 Other fatigue; K21.9 Gastro-esophageal reflux disease without esophagitis
CPT/HCPCS: 99281

== ENCOUNTER 2019-07-07 10:50 | Emergency (ER) | payer SELFPAY ==
[~2019-07-07] VITALS: Ht 177.8 cm; Wt 59.0 kg
[2019-07-07 11:00] VITALS: BP 124/62
[2019-07-07] MEDS ORDERED: ORPH100T PO (11:19)
[2019-07-07] MEDS ORDERED: METH4TAB2 PO (11:19)
--- NOTE | 2019-07-07 11:19 | PHYS DOC ---
Past Medical History Past Medical History: GERD, Other Additional Past Medical Histor: SCOLIOSIS, SCIATICA Past Surgical History: No Surgical History Smoking Status: Never Smoker Alcohol Use: None Drug Use: None Adult General Chief Complaint Chief Complaint: BACK PAIN OR INJURY [facility] Patient is a 28 year old female who presents with left-sided back pain that radiates down her left leg that started last night. The patient has no other complaints. The patient rates her pain is 10 out of 10 in severity and states he is having difficulty straightening up and walking. The patient states it feels like her sciatica which he has had in the past. She states that in the past muscle relaxers and steroids helped. Complete ROS were reviewed and found to be within normal limits, except as documented in the [facility] Allergies Allergies Allergies Coded Allergies Type Severity Reaction Last Updated Verified No Known Drug Allergies 02/23/17 No Physical Exam Physical Exam Constitutional: Well developed, well nourished, no acute distress, non-toxic appearance. [] HENT: Normocephalic, atraumatic Back: Left sided back tenderness Psychologic: Affect normal, judgement normal, mood normal. [] EKG EKG [] Radiology/Procedures Radiology/Procedures [] Course & Med Decision Making Course & Med Decision Making Pertinent Labs and Imaging studies reviewed. (See chart for details) The patient drove to the ER some unable to give her any medications that make her drowsy including muscle relaxers, or narcotics. I discussed this with the patient. Discussed that are not mine given her steroid shot while in the ER to help with symptoms and I will prescribe steroids and muscle relaxers for home. Patient is agreeable with this plan. Dragon Disclaimer Dragon Disclaimer This electronic medical record was generated, in whole or in part, using a voice recognition dictation system. Departure Departure Impression: Primary Impression: Sciatica of left side Disposition: HOME, SELF-CARE Condition: STABLE Referrals: NO PCP (PCP) Patient Instructions: Sciatica Additional Instructions: Thank you for visiting [facility]. We appreciate you trusting us with your care. If any additional problems come up don't hesitate to return to visit us. Please follow up with your primary care provider so they can plan additional care if needed and know about the problem that you had. If symptoms worsen come back to the Emergency Department. Any concerning symptoms that start such as chest pain, shortness of air, weakness or numbness on one side of the body, running high fevers or any other concerning symptoms return to the ER. Scripts Methylprednisolone (MEDROL) 4 Mg Tab.ds.pk 1 PKG PO UD, #1 PKG Prov: CHULA GLASS APRN 07/07/19 Orphenadrine Citrate (ORPHENADRINE CITRATE) 100 Mg Tablet.er 100 MG PO BID PRN for MUSCLE PAIN for 5 Days, #10 TAB.SR Prov: CHULA GLASS APRN 07/07/19 CHULA GLASS APRN Jul 07, 2019 11:19
[2019-07-07] MEDS: methylPREDNISolone SOD SUCC PF 125 MG/2 ML VIAL. IM ONE (11:26)
== END 2019-07-07 11:30 | disposition home or self-care (01) ==
LOC: ER 10:50
DX: M54.42 Lumbago with sciatica, left side (principal); K21.9 Gastro-esophageal reflux disease without esophagitis; M41.9 Scoliosis, unspecified
CPT/HCPCS: 96372; 99283; J2930

== ENCOUNTER 2019-08-03 16:32 | Emergency (ER) | payer SELFPAY ==
[~2019-08-03] VITALS: Ht 177.8 cm; Wt 59.0 kg
[~2019-08-03 16:32] MED LIST changes: +ORPH100T PO
[2019-08-03 17:17] LABS: BILIRUBIN,URINE NEGATIVE (NEG); CLARITY,URINE CLEAR; COLOR,URINE YELLOW; NITRITE,URINE NEGATIVE (NEG); PH,URINE 5.5 (<5.0-8.0); PROTEIN,URINE NEGATIVE (NEG-TRACE); UROBILINOGEN,URINE 0.2 mg/dL (0.2 mg/dL)
[2019-08-03 17:22] LABS: BACTERIA,URINE 0 /HPF (0-FEW); SQUAMOUS EPITHELIAL CELL,UR FEW /LPF
[2019-08-03 17:23] LABS: RBC,URINE OCC /HPF (0-2); WBC,URINE OCC /HPF (0-4)
--- NOTE | 2019-08-03 17:25 | PHYS DOC ---
Past Medical History Past Medical History: GERD, Other Additional Past Medical Histor: SCOLIOSIS, SCIATICA Past Surgical History: No Surgical History Smoking Status: Never Smoker Alcohol Use: None Drug Use: None General Adult EDM: Chief Complaint: ABDOMINAL PAIN HPI: HPI: Patient is a 28 year old female who presents with constipation for the last 2 weeks. She states that yesterday she drink some digestive teas and ever since then the abdominal cramping has gotten worse. She states she just feels full when she has pain that goes all the way up through her esophagus and will give her some chest pain. She denies any nausea or vomiting. She states that today she had a small amount of fluid stool come out but no actual stool. She rates her pain at a 10 out of 10. She states her appetite is been decreased but she is still been eating and drinking. Review of Systems: Review of Systems: GI: Denies abdominal pain, constipation. Denies nausea, vomiting, bloody stools or diarrhea. [] Heart Score: Risk Factors: Risk Factors: DM, Current or recent (<one month) smoker, HTN, HLP, family history of CAD, obesity. Risk Scores: Score 0 - 3: 2.5% MACE over next 6 weeks - Discharge Home Score 4 - 6: 20.3% MACE over next 6 weeks - Admit for Clinical Observation Score 7 - 10: 72.7% MACE over next 6 weeks - Early Invasive Strategies Allergies: Allergies: Allergies Coded Allergies Type Severity Reaction Last Updated Verified No Known Drug Allergies 02/23/17 No Physical Exam: PE: Constitutional: Well developed, well nourished, no acute distress, non-toxic appearance. [] HENT: Normocephalic, atraumatic, bilateral external ears normal, oropharynx moist, no oral exudates, nose normal. [] Eyes: PERRLA, EOMI, conjunctiva normal, no discharge. [] Neck: Normal range of motion, no tenderness, supple, no stridor. [] Cardiovascular:Heart rate regular rhythm, no murmur [] Lungs & Thorax: Bilateral breath sounds clear to auscultation [] Abdomen: Bowel sounds normal, soft, distended, slight generalized tenderness, no masses, no pulsatile masses. [] Skin: Warm, dry, no erythema, no rash. [] Back: No tenderness, no CVA tenderness. [] Extremities: No tenderness, no cyanosis, no clubbing, ROM intact, no edema. [] Neurologic: Alert and oriented X 3, normal motor function, normal sensory function, no focal deficits noted. [] Psychologic: Affect normal, judgement normal, mood normal. [] Current Patient Data: Labs: Laboratory Tests Test 08/03/19 16:59 POC Urine HCG, Qualitative Hcg negative (Negative) Vital Signs: Vital Signs Date Time Temp Pulse Resp B/P (MAP) Pulse Ox O2 Delivery O2 Flow Rate FiO2 08/03/19 16:48 98.6 103 16 127/73 (91) 99 Room Air 98.6 EKG: EKG: SINUS RHYTHM AND NO STEMI[] Radiology/Procedures: Radiology/Procedures: [] Impression: [address] [address] IMAGING REPORT Signed PATIENT: ROXY DA SILVA ACCOUNT: [id number] : 1990 LOCATION: ER AGE: 28 SEX: F EXAM STATUS: REG ER ORD. PHYSICIAN: SUNIL KAUFMAN APRN REASON: abd pain, constipation 6 ucg first PROCEDURE: KUB EXAM: Supine AP view of the abdomen DATE: 08/03/2019 5:18 PM INDICATION: Abdominal pain, constipation COMPARISON: No Prior FINDINGS: No abnormal small or large bowel dilatation. Moderate colonic stool content. No abnormal soft tissue mass effect. No suspicious calcifications are seen. Evaluation for free intraperitoneal gas is limited on this supine exam. IMPRESSION: 1. No evidence for bowel obstruction. 2. Moderate colonic stool content is seen. Electronically signed by: Alvaro Diaz MD (08/03/2019 6:51 PM) [facility] DICTATED and SIGNED BY: ALVARO DIAZ MD DATE: 08/03/[address] [address] IMAGING REPORT Signed PATIENT: ROXY DA SILVA ACCOUNT: [id number] : 1990 LOCATION: ER AGE: 28 SEX: F EXAM STATUS: REG ER ORD. PHYSICIAN: SUNIL KAUFMAN APRN REASON: PELVIC PAIN, RLQ, ALSO CHECK APPENDIX PROCEDURE: PELVIS COMPLETE Exam: Ultrasound pelvis Indication: Pelvic pain, right lower quadrant Technique: Real-time grayscale and color Doppler images of the Tre were obtained by the department monitoring coordinator. Transabdominal images only. Patient declined transvaginal imaging. Comparisons: None FINDINGS: Uterus measures 6.8 x 4.1 x 4.3 cm. Endometrium measures approximately 1.7 cm in thickness. Ovaries are not visualized. Imaging in the right lower quadrant is limited secondary to overlying bowel gas. Appendix is not visualized. No free fluid. IMPRESSION: 1. Limited evaluation secondary to overlying bowel gas. Ovaries and appendix are not visualized. 2. Uterus is normal size with endometrium at the upper limits of normal in size. Correlate with phase of cycle. Electronically signed by: Lorena Lorenzana MD (08/03/2019 8:02 PM) [id number] DICTATED and SIGNED BY: LORENA LORENZANA MD DATE: 08/03/192001 Course & Med Decision Making: Course & Med Decision Making Pertinent Labs and Imaging studies reviewed. (See chart for details) Alert and oriented. Speaks in full clear sentences. Abdomen is distended but soft and patient states slightly tender. States she is having sharp cramping pain in her lower abdomen. Bowel sounds are normal. Patient states she also has a history of GERD along with constipation. Patient states that she has not taken anything else to help relieve her constipation or her GERD. Ambulatory with a steady gait. Skin pink warm and dry. Vital signs within normal limits. [] Dragon Disclaimer: Jadyn Disclaimer: This electronic medical record was generated, in whole or in part, using a voice recognition dictation system. Departure Departure Impression: Primary Impression: Constipation Qualified Codes: K59.00 - Constipation, unspecified Disposition: HOME, SELF-CARE Condition: STABLE Referrals: NO PCP (PCP) Patient Instructions: Constipation, Adult Additional Instructions: Follow-up with a GI doctor in the next couple of weeks if the constipation continues to be an intermittent problem for you. You can also start taking Colace stool softener daily and drink plenty of water. Use prescriptions as prescribed. Scripts Na Phos,M-B/Na Phos,Di-Ba (FLEET ENEMA) 133 Ml Enema 1 EACH RC ONCE, #1 BOTTLE Prov: SUNIL KAUFMAN APRN 08/03/19 SUNIL KAUFMAN APRN Aug 03, 2019 17:25
[2019-08-03] MEDS ORDERED: DICYCLOMINE 20 MG/2 ML VIAL. IM ONE (17:30)
[2019-08-03] MEDS ORDERED: FAMOTIDINE 20 MG TABLET. PO ONE (17:30)
[2019-08-03 17:42] LABS: BASO % 0 % (0-3); EOS # 0.1 x10^3/uL (0.0-0.7); EOS % 2 % (0-3); LYMPH # 1.7 x10^3/uL (1.0-4.8); LYMPH % 27 % (24-48); MEAN CORPUSCULAR HEMOGLOBIN 29 pg (25-35); MEAN CORPUSCULAR HGB CONC 33 g/dL (31-37); MEAN CORPUSCULAR VOLUME 88 fL (79-100); MONO # 0.5 x10^3/uL (0.0-1.1); MONO % 7 % (0-9); NEUT # 4.1 x10^3/uL (1.8-7.7); NEUT % 64 % (31-73); PLATELET COUNT 212 x10^3/uL (140-400); RED BLOOD COUNT 4.57 x10^6/uL (3.50-5.40); RED CELL DISTRIBUTION WIDTH 14.5 % (11.5-14.5); WHITE BLOOD COUNT 6.4 x10^3/uL (4.0-11.0)
[2019-08-03 17:51] LABS: CALCIUM 9.6 mg/dL (8.5-10.1); CREATININE 0.7 mg/dL (0.6-1.0); GFR 120.6; POTASSIUM 3.9 mmol/L (3.5-5.1)
[2019-08-03 17:57] LABS: ALBUMIN 3.7 g/dL (3.4-5.0); ALBUMIN/GLOBULIN RATIO 0.9 (1.0-1.7); TOTAL BILIRUBIN 0.3 mg/dL (0.2-1.0); TOTAL PROTEIN 7.7 g/dL (6.4-8.2)
--- NOTE | 2019-08-03 18:54 | RAD ---
EXAM: Supine AP view of the abdomen DATE: 08/03/2019 5:18 PM INDICATION: Abdominal pain, constipation COMPARISON: No Prior FINDINGS: No abnormal small or large bowel dilatation. Moderate colonic stool content. No abnormal soft tissue mass effect. No suspicious calcifications are seen. Evaluation for free intraperitoneal gas is limited on this supine exam. IMPRESSION: 1. No evidence for bowel obstruction. 2. Moderate colonic stool content is seen. Electronically signed by: Alvaro Cárdenas MD (08/03/2019 6:51 PM) ZENON
[2019-08-03] MEDS ORDERED: NA P133E2 RC (19:02)
[2019-08-03] MEDS ORDERED: MAGNESIUM CITRATE 296 ML SOLUTION. PO ONE (19:15)
--- NOTE | 2019-08-03 20:06 | RAD ---
Exam: Ultrasound pelvis Indication: Pelvic pain, right lower quadrant Technique: Real-time grayscale and color Doppler images of the Tre were obtained by the department teacher ballet. Transabdominal images only. Patient declined transvaginal imaging. Comparisons: None FINDINGS: Uterus measures 6.8 x 4.1 x 4.3 cm. Endometrium measures approximately 1.7 cm in thickness. Ovaries are not visualized. Imaging in the right lower quadrant is limited secondary to overlying bowel gas. Appendix is not visualized. No free fluid. IMPRESSION: 1. Limited evaluation secondary to overlying bowel gas. Ovaries and appendix are not visualized. 2. Uterus is normal size with endometrium at the upper limits of normal in size. Correlate with phase of cycle. Electronically signed by: Lorena Calero MD (08/03/2019 8:02 PM) [id number]
[2019-08-03 20:52] VITALS: BP 124/78
--- NOTE | 2019-08-04 05:47 | EKG ---
[facility] [address] [place] [address] Test Date: 2019-08-03 Test Time: 17:41:09 Pat Name: ROXY DA SILVA Department: Room: Gender: F [employer]: : 1990 Requested By: SUNIL KAUFMAN Order Number: [id number] Reading MD: Anders Becker MD Measurements Intervals Soper Rate: 87 P: 55 NE: 186 QRS: 57 QRSD: 76 T: 58 QT: 330 QTc: 402 Interpretive Statements SINUS RHYTHM NON SPECIFIC ST-T ABNORMALITY (ELEVATION) OTHERWISE NORMAL ECG Electronically Signed On 08-04-2019 8:35:54 CDT by Anders Becker MD
== END 2019-08-03 20:52 | disposition home or self-care (01) ==
LOC: ER 16:32
DX: K59.00 Constipation, unspecified (principal); R10.84 Generalized abdominal pain; K21.9 Gastro-esophageal reflux disease without esophagitis; M41.80 Other forms of scoliosis, site unspecified
CPT/HCPCS: 36415; 74018; 76856; 80053; 81001; 81025; 83690; 84484; 85025; 87086; 93005; 96372; 99285; J0500

== ENCOUNTER 2019-11-19 10:22 | Emergency (ER) | payer SELFPAY ==
[~2019-11-19] VITALS: Ht 177.8 cm; Wt 64.5 kg
[~2019-11-19 10:22] MED LIST changes: +NA P133E2 RC
[2019-11-19 10:53] LABS: BILIRUBIN,URINE NEGATIVE (NEG); CLARITY,URINE CLEAR; COLOR,URINE YELLOW; NITRITE,URINE NEGATIVE (NEG); PH,URINE 5.5 (<5.0-8.0); PROTEIN,URINE NEGATIVE (NEG-TRACE); UROBILINOGEN,URINE 0.2 mg/dL (0.2 mg/dL)
[2019-11-19 11:15] LABS: BACTERIA,URINE MOD /HPF (0-FEW); RBC,URINE OCC /HPF (0-2); SQUAMOUS EPITHELIAL CELL,UR MOD /LPF
[2019-11-19] MEDS ORDERED: LIDO:MAALOX 1:1 20 ML SINGLE DOSE. SWSW ONE (11:15)
--- NOTE | 2019-11-19 11:57 | RAD ---
ACUTE ABDOMEN SERIES History: Distention. Comparison: Two-view chest June 12, 2018. KUB, August 03, 2019. Findings: Frontal chest and supine and upright views of the abdomen. Cardiomediastinal silhouette is normal. There is no pleural effusion or pneumothorax. The lungs are clear. No pneumoperitoneum is identified. No dilated air-filled loops of bowel are seen. There is a paucity of bowel gas decreasing sensitivity. There is moderate colon stool volume. Bowel gas pattern is nonobstructive. No obvious organomegaly. Bones unremarkable. IMPRESSION: 1. No acute cardiopulmonary process. 2. Nonobstructive bowel gas pattern. Electronically signed by: Dale Layne MD (11/19/2019 11:54 AM) [id number]
[2019-11-19] MEDS ORDERED: SIMETHICONE 80 MG TAB.CHEW PO PRN (12:15)
[2019-11-19] MEDS ORDERED: HYOSCYAMINE 0.125 MG TAB.RAPDIS PO PRN (12:15)
[2019-11-19] MEDS ORDERED: PSYL0.5215 PO (12:17)
[2019-11-19] MEDS ORDERED: SUCR1TAB35 PO (12:17)
--- NOTE | 2019-11-19 12:23 | PHYS DOC ---
Past Medical History Past Medical History: GERD, IBS, Other Additional Past Medical Histor: SCOLIOSIS, SCIATICA Past Surgical History: No Surgical History Smoking Status: Never Smoker Alcohol Use: None Drug Use: None General Adult EDM: Chief Complaint: ABDOMINAL PAIN HPI: HPI: Patient states that this is Patient is a 29-year-old female who presents to the emergency room complaining of epigastric sharp intermittent abdominal pains that have been ongoing for 2 weeks. She states she gets them every day. She denies any nausea, vomiting, di arrhea, constipation, Chills, sweats, difficulty eating. She has had similar issues in the past. She states she has been avoiding spicy food to help with her GERD. She has never seen a GI specialist.. Review of Systems: Review of Systems: General: Denies fever, chills, sweats, fatigue Eyes: Denies drainage, blurred vision, eye redness HENT: Denies rhinorrhea, sore throat, earache Respiratory: Denies cough, shortness of breath, wheezing Cardiac: Denies edema, palpitations, chest pain GI: Reports abdominal pain. Denies nausea, vomiting, diarrhea, constipation, vaginal bleeding, vaginal discharge MSK: Denies neck pain, back pain Skin: Denies rash, jaundice Neuro: Denies headache, dizziness Psychiatric: Denies SI/HI Heart Score: Risk Factors: Risk Factors: DM, Current or recent (<one month) smoker, HTN, HLP, family history of CAD, obesity. Risk Scores: Score 0 - 3: 2.5% MACE over next 6 weeks - Discharge Home Score 4 - 6: 20.3% MACE over next 6 weeks - Admit for Clinical Observation Score 7 - 10: 72.7% MACE over next 6 weeks - Early Invasive Strategies Current Medications: Current Medications Medications (Trade) Dose Ordered Sig/Trini Start Time Stop Time Status Last Admin Dose Admin Multi-Ingredient Mouthwash/Gargle (Gi Cocktail) 20 ml 1X ONCE 11/19/19 11:15 11/19/19 11:16 DC 11/19/19 11:53 20 ML Allergies: Allergies: Allergies Coded Allergies Type Severity Reaction Last Updated Verified No Known Drug Allergies 02/23/17 No Physical Exam: PE: General: Awake, alert, NAD. Well Nourished, well hydrated. Cooperative HEENT: Atraumatic, EOMI, PERRL, airway patent, moist oral mucosa Neck: Supple, trachea midline Respiratory: CTA bilaterally, normal effort, no wheezing/crackles CV: RRR, no murmur, cap refill <2 GI: Soft, distended, nontender, no masses, no rebound, no guarding MSK: No obvious deformities Skin: Warm, dry, intact Neuro: A&O x3, speech NL, sensory and motor grossly intact, no focal deficits Psych: Normal affect, normal mood, not suicidal or homicidal Current Patient Data: Labs: Laboratory Tests Test 11/19/19 10:36 11/19/19 10:50 Urine Collection Type Void Urine Color Yellow Urine Clarity Clear Urine pH 5.5 (<5.0-8.0) Urine Specific [place] 1.015 (1.000-1.030) Urine Protein Negative mg/dL (NEG-TRACE) Urine Glucose (UA) Negative mg/dL (NEG) Urine Ketones (Stick) Negative mg/dL (NEG) Urine Blood Trace (NEG) Urine Nitrite Negative (NEG) Urine Bilirubin Negative (NEG) Urine Urobilinogen Dipstick 0.2 mg/dL (0.2 mg/dL) Urine Leukocyte Esterase Negative (NEG) Urine RBC Occ /HPF (0-2) Urine WBC 1-4 /HPF (0-4) Urine Squamous Epithelial Cells Mod /LPF Urine Bacteria Mod /HPF (0-FEW) Urine Mucus Marked /LPF POC Urine HCG, Qualitative Hcg negative (Negative) Vital Signs: Vital Signs Date Time Temp Pulse Resp B/P (MAP) Pulse Ox O2 Delivery O2 Flow Rate FiO2 11/19/19 10:32 98.7 80 16 167/70 (102) 98 Room Air 98.7 EKG: EKG: [] Radiology/Procedures: Radiology/Procedures: [] Course & Med Decision Making: Course & Med Decision Making Pertinent Labs and Imaging studies reviewed. (See chart for details) Patient is 29-year-old female who presents the emergency room complaining of abdominal pain. Patient has presented to the emergency room multiple times over the last couple of years for similar pain. She does have a history of GERD. She is not on medications for this as she states she cannot afford them. Patient does have mild distention, however she does not have any tenderness, rebound, guarding. Patient's 2 weeks of symptoms without any other associated symptoms such as vomiting, diarrhea, fever, appetite changes suggest that this is not infectious in nature. It is highly unlikely that this is related to a cholecystitis. Is more likely that she has IBS or gastritis. Acute abdominal series was done and that there is no signs of obstruction or free air that would be suggestive of a perforation from a peptic ulcer. Patient is very well- appearing. She was given a GI cocktail, Levsin, simethicone. I have discussed with her that she should continue to avoid spicy foods and should increase her fiber intake. I have discussed with her that she needs to follow-up with a GI physician to help her with her chronic abdominal issues. Patient's test results and vitals while in the ED were fully reviewed and discussed with the patient. Patient is stable and at this time does not need admission to the hospital. We have discussed strict return precautions and the importance of following up with their Primary Care Physician. Patient stated understanding and was given an opportunity to ask any questions. Patient is in agreement with plan. Dragon Disclaimer: Dragon Disclaimer: This electronic medical record was generated, in whole or in part, using a voice recognition dictation system. Departure Departure Impression: Primary Impression: Abdominal pain Disposition: HOME, SELF-CARE Condition: STABLE Referrals: NO PCP (PCP) CHULA FROST MD Patient Instructions: Diet and Irritable Bowel Syndrome, Irritable Bowel Syndrome Scripts Psyllium Husk (METAMUCIL) 0.52 Gm Capsule 1 CAP PO DAILY for 30 Days, #30 CAP 0 Refills Prov: GEORGE WEBER MD 11/19/19 Sucralfate (CARAFATE) 1 Gm Tablet 1 TAB PO QID for 30 Days, #120 TAB 0 Refills Prov: GEORGE WEBER MD 11/19/19 Justicifation of Admission Dx: Justifications for Admission: Justification of Admission Dx: N/A GEORGE WEBER MD Nov 19, 2019 12:23
[2019-11-19 12:44] VITALS: BP 127/93
== END 2019-11-19 12:47 | disposition home or self-care (01) ==
LOC: ER 10:22
DX: R10.13 Epigastric pain (principal); K21.9 Gastro-esophageal reflux disease without esophagitis; M41.9 Scoliosis, unspecified
CPT/HCPCS: 74022; 81001; 81025; 99284